=== PATIENT | female | born 1950 | race Caucasian/White ===

== ENCOUNTER 2018-02-03 08:42 | Day surgery (SDC) | payer OTHER, BC ==
--- NOTE | 2018-02-02 12:26 | RAD REPORT ---
EXAM DESCRIPTION: RAD - Chest Pa And Lat (2 Views) - 02/02/2018 12:17 pm CLINICAL HISTORY: Coronary artery disease. Chest pain. COMPARISON: CHEST PA AND LAT 2 VIEW dated 03/03/2012; CHEST SINGLE VIEW dated 05/22/2003 FINDINGS: Diffuse COPD is present. The heart is normal in size. No displaced fractures. Aortic ather osclerosis. IMPRESSION: Diffuse COPD.
[2018-02-02 13:05] LABS: Absolute Lymphocytes (CBC) 1.4 K/uL (0.7-4.9); Absolute Monocytes 0.6 K/uL (0.1-1.3); Absolute Neutrophil 1.9 K/uL (1.8-8.0); Basophils % 0.7 % (0-1.3); Eosinophils % 2.9 % (0-4.4); Hematocrit 34.3 % (36.0-45.0); Lymphocytes % 34.8 % (15.3-44.8); MCH 27.3 pg (27.0-35.0); MCV 85.4 fL (80-100); MPV 9.9 fL (7.6-11.3); Monocytes % 14.7 % (3.3-12.3); RBC Red Blood Cell Count 4.01 M/uL (3.86-4.86)
[2018-02-02 13:21] LABS: Potassium 4.3 mmol/L (3.5-5.1)
[2018-02-03] MEDS ORDERED: NA CHLORIDE 0.9% 500 ML ONE (09:31)
[2018-02-03] MEDS ORDERED: LIDOCAINE 1% MPF 5 ML VIAL ONE (11:05)
[2018-02-03] MEDS ORDERED: HEPA 1000U/500MLS 2,000 UNIT/1,000 ML BAG IV ONE (11:52)
[2018-02-03] MEDS ORDERED: MIDAZOLAM HCL 2 MG/2 ML INJ ONE ×2 (11:53→12:12)
[2018-02-03] MEDS ORDERED: FENTANYL CITR 100 MCG/2 ML ONE (11:53)
[2018-02-03] MEDS ORDERED: HEPARIN 5000 UNIT/ML 1 ML VIAL ONE (12:31)
[2018-02-03 13:29] VITALS: O2SAT 97
[2018-02-03 14:34] VITALS: BP 156/66
[2018-02-03 14:37] VITALS: TEMP 97.4
--- NOTE | 2018-02-03 19:00 | OP ---
Surgeon: Prabhjot Goldsmith MD Production Superintendent: Medina Maria. Admitted to my service as an outpatient on 02/03/2018. The patient was admitted to the clinical laboratory medical director as a n outpatient. Procedure Done: Abdominal angiogram with runoff with selective occlusion of the left superficial fem oral artery. Indication: Peripheral vascular disease and the need for right foot surgery. Description Of Procedure: A 6-Czech sheath was introduced in the right common femoral artery. Star Close was used to close the case. Angiography with a pigtail that was advanced just above the renals revealed normal aorta, normal renals, normal iliacs, normal SFA. She had normal popliteal. She had 100% occlusion of both anterior tibial and peroneal distally. Her posterior tibial was patent bilat erally all the way to the dorsalis pedis. 6-Czech catheters were used. No complications. Blood Loss: 5 cc. Postoperative Diagnosis: Peripheral artery disease. Plan: Medical therapy. We will clear for foot surgery DELILAH/LULU Voice ID: [id number] Report ID: [id number]
== END 2018-02-03 15:01 | disposition home or self-care (01) ==
LOC: CCL 08:42
PROC: B41DYZZ Fluoroscopy of Aorta and Bilateral Lower Extremity Arteries using Other Contrast (ICD-10-PCS; principal; 2018-02-03)
DX: I70.219 Atherosclerosis of native arteries of extremities with intermittent claudication, unspecified extremity (principal); E78.6 Lipoprotein deficiency; I10 Essential (primary) hypertension; I25.10 Atherosclerotic heart disease of native coronary artery without angina pectoris; Z98.61 Coronary angioplasty status; I73.9 Peripheral vascular disease, unspecified
CPT/HCPCS: 36200; 36415; 71046; 75630; 80048; 85025; 85730; C1769; C1887; C1893; J1644; J2250 ×2; J3010

== ENCOUNTER 2018-02-23 15:48 | Inpatient (IN) | payer OTHER, BC ==
[2018-02-23] MEDS ORDERED: MEPERIDINE HCL 25 MG/0.5 ML IV PRN (16:59)
[2018-02-23 17:08] VITALS: BMI 16.6
[2018-02-23] MEDS ORDERED: Pharmacy Consult 1 EA XX PRN (17:13)
[2018-02-23] MEDS ORDERED: VANCOMYCIN 750 MG in NA CHLORIDE 0.9% 150 ML IVPB ONE (17:15)
[2018-02-23 17:45] LABS: Urine Appearance CLEAR; Urine Bilirubin NEGATIVE (NEG); Urine Blood NEGATIVE (NEG); Urine Color YELLOW; Urine Glucose NEGATIVE (NEG); Urine Protein NEGATIVE (NEG); Urine pH 5.5 (5.0-7.0)
[2018-02-23 17:56] LABS: Urine Microscopic Reflex NO UMIC
[2018-02-23 18:06] LABS: Absolute Lymphocytes (CBC) 1.7 K/uL (0.7-4.9); Absolute Monocytes 1.1 K/uL (0.1-1.3); Absolute Neutrophil 4.7 K/uL (1.8-8.0); Basophils % 2.6 % (0-1.3); Eosinophils % 1.5 % (0-4.4); Hematocrit 34.7 % (36.0-45.0); Lymphocytes % 21.5 % (15.3-44.8); MCH 28.4 pg (27.0-35.0); MCV 85.7 fL (80-100); MPV 11.1 fL (7.6-11.3); Monocytes % 14.2 % (3.3-12.3); RBC Red Blood Cell Count 4.05 M/uL (3.86-4.86)
[2018-02-23 19:04] LABS: Albumin 2.6 g/dL (3.4-5.0); Bilirubin Total 0.5 mg/dL (0.2-1.0); Potassium 3.8 mmol/L (3.5-5.1); Protein, Total 7.1 g/dL (6.4-8.2)
--- NOTE | 2018-02-23 21:10 | RAD REPORT ---
EXAM DESCRIPTION: RAD - Foot Left 2 View - 02/23/2018 8:02 pm CLINICAL HISTORY: Foot abscess COMPARISON: None. FINDINGS: No acute fracture change. No dislocation or periosteal reaction. No significant joint spa ce narrowing seen. No bony erosive change identifiable. In the soft tissues medial and inferior to th e first MTP joint there is a 4 centimeter soft tissue mass. Centrally within this mass are coarse Par k and ring type calcifications. Calcifications are relatively distant from the joint space. Calcifica tions could be secondary to a chronic infectious process. Gout is not excluded though the calcificati ons are relatively distant from the joint and the first MTP joint does not show any classic punched-o ut lesion or erosive changes. No air or foreign body in the soft tissues. IMPRESSION: Large 4 centimeter soft tissue mass medial and inferior to the first MTP joint. This is presumed to be the sided infection. No further detail provided regarding site of soft tissue infectio n. Calcifications can 4 minutes a chronic infection. CT would be possible though the calcifications are relatively distant from the joint space and there are no punched-out or erosive changes present.
[2018-02-24] MEDS: PANTOPRAZOLE 40MG TABLET PO SCH (05:42)
[2018-02-24] MEDS: METOPROLOL XL 100 MG TAB PO SCH ×2 (09:00→21:00)
[2018-02-24] MEDS: AMLODIPINE 5 MG TAB PO SCH ×2 (09:00→21:00)
[2018-02-24] MEDS: ASPIRIN EC 81 MG TAB PO SCH (09:00)
[2018-02-24] MEDS ORDERED: Ringers Lactate 1,000 ML IV ONE (10:00)
[2018-02-24] MEDS ORDERED: PROPOFOL 200 MG/20 ML VIAL IV ONE (10:34)
[2018-02-24] MEDS ORDERED: MIDAZOLAM HCL 2 MG/2 ML INJ ONE (10:34)
[2018-02-24] MEDS ORDERED: LIDOCAINE 1% MPF 5 ML VIAL ONE (10:35)
[2018-02-24] MEDS ORDERED: FENTANYL CITR 100 MCG/2 ML ONE (10:35)
[2018-02-24] MEDS ORDERED: ONDANSETRON HCL 40 MG/20 ML VIAL ONE (11:12)
--- NOTE | 2018-02-24 11:18 | P.CNS ---
Date of Consult: 02/23/18 Reason for Consult: cellulitis/abscess left foot History of Present Illness: 67 y/o female with left medial foot tenderness, erythema with on/off purulent discharge. Pt does not recall any trauma. Allergies epinephrine Adverse Reaction (Severe, Verified 02/23/18 20:05) Hives/Rash codeine Adverse Reaction (Verified 02/23/18 20:05) Hives/Rash morphine Adverse Reaction (Verified 02/23/18 20:05) low BP Home Medications: Amlodipine [Norvasc*] 5 mg PO BID 02/23/18 Aspirin [Aspir-Low] 81 mg PO DAILY 02/23/18 Esomeprazole Mag Trihydrate [Nexium] 40 mg PO DAILY 02/23/18 Metoprolol Succinate [Toprol Xl] 100 mg PO BID 02/23/18 - Past Medical/Surgical History Diabetic: No -: Hypertension -: Coronary stent placement -: Cataract surgery ninoska eyes - Social History Smoking Status: Current every day smoker Alcohol use: No CD- Drugs: No Caffeine use: Yes Place of Residence: Home Review of Systems General: Malaise Eyes: Unremarkable ENT: Unremarkable Respiratory: Unremarkable Cardiovascular: Unremarkable Gastrointestinal: Unremarkable Genitourinary: Unremarkable Musculoskeletal: As per HPI Integumentary: As per HPI Physical Examination Temp Pulse Resp BP Pulse Ox 98.1 F 75 17 128/60 96 02/24/18 08:00 02/24/18 08:00 02/24/18 08:00 02/24/18 08:00 02/24/18 08:00 General: Alert, Oriented x3, Cooperative HEENT: PERRLA, EOMI Neck: Supple Respiratory: Normal air movement Cardiovascular: Abnormal pulses Gastrointestinal: Soft and benign, No rebound, No guarding Musculoskeletal: Erythema, Tenderness, Warmth Integumentary: No cyanosis, Erythema (with fluctuancy), Warmth, Other Neurological: Normal speech Laboratory Data (last 24 hrs) 02/23/18 17:45: Sodium 137, Potassium 3.8, BUN 17, Creatinine 0.90, Glucose 97, Total Bilirubin 0.5, AST 35, ALT 45, Alkaline Phosphatase 641 H 02/23/18 17:45: WBC 7.7, Hgb 11.5 L, Hct 34.7 L, Plt Count 290 Imagings Data: arterial doppler seen. Conclusions/Impression: Excisional debridement of left foot ulcer. BAR explained including but not limited to infection, bleeding damage to adjacent structures, non healing wound VT even . Foot xray off loading iv abx NPO P
--- NOTE | 2018-02-24 11:26 | P.BOP ---
Preoperative diagnosis: Left foot cellulitis/ abscess/necrotic ulcer Postoperative diagnosis: same Primary procedure: Incision and drainage of complex left foot abscess 7x4cm with debridement Estimated blood loss: <20cc Specimen: culture, tissue Findings: absess Anesthesia: General Complications: None Drain(s): Other Transferred to: Recovery Room Condition: Good
[2018-02-24] MEDS: MEPERIDINE HCL 50 MG/ML AMP ONE ×2 (11:50→11:55)
[2018-02-24] MEDS ORDERED: VANCOMYCIN 750 MG in NA CHLORIDE 0.9% 150 ML IVPB SCH (17:00)
[2018-02-24] MEDS ORDERED: ENOXAPARIN 30 MG/0.3 ML SQ ONE (17:30)
--- NOTE | 2018-02-25 00:55 | HP ---
Date of Admission: 02/23/2018 Chief Complaint: Pain, foot. History Of Present Illness: A 67-year-old female who is known to have scleroderma and reflux esophag itis and hypertension, was brought to the office with pain of the foot. She was found to have absces s in the foot with surrounding cellulitis. The patient is admitted. The patient denied any history of trauma. Past Medical History: Positive for scleroderma, hypertension. The patient has been having problems with the foot and has been seeing ophthalmic lens inspector. She also had evaluation done by Dr. Goldsmith recently, not needing any angioplasty. Family History: Noncontributory. Personal History: Nonsmoker. Allergies: EPINEPHRINE, CODEINE, AND MORPHINE. Review of Systems: The patient denied any history of chest pain or shortness of breath. Physical Examination: General: Revealed 67-year-old female in cnzzlmrn-[id number]-hnmqjz pain. HEENT: Negative. Neck: Supple. JVD negative. Chest: Few scattered wheezes. Heart: Regular. Abdomen: Soft. Extremities: Evidence of scleroderma noted with tight skin and atrophy of the tips of the toes and f ingers. She also has large abscess of the foot on the medial side with surrounding redness. Laboratory Data: X-ray; no evidence of osteomyelitis. WBC count normal. Assessment: 1.Abscess, cellulitis, left foot. 2.Scleroderma. 3.Hypertension. 4.Acid reflux disease related to scleroderma. Plan: Vancomycin. Surgical consultation is done. SYDNEY/LULU Voice ID: [id number]
[2018-02-25] MEDS: PANTOPRAZOLE 40MG TABLET PO SCH ×2 (06:03→06:05)
[2018-02-25] MEDS: AMLODIPINE 5 MG TAB PO SCH (09:00)
[2018-02-25] MEDS: METOPROLOL XL 100 MG TAB PO SCH (09:00)
[2018-02-25] MEDS: ASPIRIN EC 81 MG TAB PO SCH (09:00)
[2018-02-25 10:41] VITALS: TEMP 98.2
[2018-02-25 11:47] VITALS: O2SAT 99
[2018-02-25 16:44] VITALS: BP 161/70
--- NOTE | 2018-02-25 20:37 | OP ---
Date of Procedure: 02/24/2018 Surgeon: Dennys Brown MD Preoperative Diagnoses: Left foot cellulitis abscess, necrotic ulcer. Postoperative Diagnoses: Left foot cellulitis abscess, necrotic ulcer. Procedures: Incision and drainage of complex left foot abscess, 7 x 4 cm with debridement of the dev italized tissue. Specimen: Culture and devitalized tissue. Finding: Abscess. Indications: This is a case of a 67-year-old patient, who comes to us with cellulitis of the left fo ot region. Started on IV antibiotics. Very tender. The patient started on antibiotics and a surgic al consult obtained for drainage of an abscess. The benefits, alternatives, and risks have been full y explained, which include but are not limited to infection, bleeding, damage to adjacent structures, anesthesia complication, nonhealing wound, MS, and even . They also understands this may not r elieve any symptoms. She might need more than one surgical intervention. They understood. Signed a consent. Procedure In Detail: The area of concern was marked by me and the patient in the holding room. A ti me-out was called. The left foot was prepped and draped in sterile fashion. Local anesthesia was ap plied for allowing the incision of the devitalized tissue. This goes all the way down to bone. We n oticed not only pus, but also this tophi-like tissue in that area. Cannot rule out gout if it is inv olved in this case. So, we will discuss that with the primary doctor. Anyway the abscess was draine d. Loculations opened. Devitalized tissue was removed, sent to the pathologist and the area was pac ked wet-to-dry dressing after obtaining hemostasis. The patient tolerated the procedure well. The patient was sent to Recovery in stable condition. PATT/MODL Voice ID: [id number] Report ID: [id number]
--- NOTE | 2018-03-06 14:47 | DS ---
Date of Discharge: 02/25/2018 Final Diagnoses: 1.Cellulitis and abscess, left foot. 2.Scleroderma. 3.Hypertension. 4.Acid reflux disease related to scleroderma. Hospital Course: This patient had evidence of cellulitis and abscess formation of the left foot. Th e patient after admission to the hospital was started on antibiotic in the form of vancomycin, and th e patient had surgical consultation. The patient subsequently underwent incision and drainage and de bridement. The patient received IV antibiotic following the procedure, and she was discharged home o n oral antibiotics on 02/23/2019 and to have follow up in the office. Laboratory Data: Please refer to the chart. SYDNEY/LULU Voice ID: [id number] Report ID: [id number]
== END 2018-02-25 14:49 | disposition home health service (06) | DRG 580 ==
LOC: 2ND 16:11
PROVIDERS: ADMIT Internal Medicine; ATTEND Internal Medicine
PROC: 0J9R0ZZ Drainage of Left Foot Subcutaneous Tissue and Fascia, Open Approach (ICD-10-PCS; principal; 2018-02-24 10:15)
DX: L02.612 Cutaneous abscess of left foot (principal); L03.116 Cellulitis of left lower limb; I10 Essential (primary) hypertension; F17.200 Nicotine dependence, unspecified, uncomplicated; M34.9 Systemic sclerosis, unspecified; K21.9 Gastro-esophageal reflux disease without esophagitis; Z95.5 Presence of coronary angioplasty implant and graft; Z88.5 Allergy status to narcotic agent; Z88.8 Allergy status to other drugs, medicaments and biological substances; Z79.82 Long term (current) use of aspirin
CPT/HCPCS: 36415; 80053; 81003; 83540; 85025; 87070; 87075; 87077; 87186; 87205; 88304; 88311; J1650; J2175; J2250; J2405; J3010

== ENCOUNTER 2018-04-27 10:55 | Observation (INO) | payer OTHER, BC ==
[2018-04-27 12:03] LABS: Urine Appearance CLEAR; Urine Bilirubin NEGATIVE (NEG); Urine Blood NEGATIVE (NEG); Urine Color YELLOW; Urine Glucose NEGATIVE (NEG); Urine Protein NEGATIVE (NEG); Urine Specific Gravity <=1.005 (1.005-1.030)
[2018-04-27 12:19] LABS: Absolute Lymphocytes (CBC) 1.5 K/uL (0.7-4.9); Absolute Monocytes 0.6 K/uL (0.1-1.3); Absolute Neutrophil 2.8 K/uL (1.8-8.0); Eosinophils % 2.1 % (0-4.4); Hematocrit 26.9 % (36.0-45.0); Lymphocytes % 28.5 % (15.3-44.8); MCH 21.8 pg (27.0-35.0); MCV 72.5 fL (80-100); MPV 10.1 fL (7.6-11.3); Monocytes % 11.9 % (3.3-12.3); RBC Red Blood Cell Count 3.71 M/uL (3.86-4.86)
[2018-04-27 12:26] LABS: Urine Microscopic Reflex NO UMIC
[2018-04-27 12:39] LABS: Albumin 2.2 g/dL (3.4-5.0); Bilirubin Total 0.5 mg/dL (0.2-1.0); Potassium 3.4 mmol/L (3.5-5.1); Protein, Total 5.8 g/dL (6.4-8.2)
[2018-04-27 13:06] LABS: Anisocytosis 2+; Blood Morphology Comment NOTED (NOT SEEN); Platelet Estimate INCR; Urine White Blood Cell Casts OK
[2018-04-27 13:07] LABS: Hypochromasia 2+; Macrocytosis SLIGHT; Polychromasia SLIGHT
[2018-04-27] MEDS: NACHLORIDE 0.45% 1,000 ML IV SCH ×2 (13:11→21:28)
--- NOTE | 2018-04-27 14:26 | RAD REPORT ---
EXAM DESCRIPTION: CTAbdomen Pelvis W Contrast - 04/27/2018 2:16 pm CLINICAL HISTORY: Abdominal pain. abd pain COMPARISON: No comparisons TECHNIQUE: Biphasic CT imaging of the abdomen and pelvis was performed with 100 ml non-ionic IV cont rast. All CT scans are performed using dose optimization technique as appropriate and may include automated exposure control or mA/KV adjustment according to patient size. FINDINGS: Subsegmental atelectasis is present in both lung bases with small moderate bilateral pleur al effusions. The liver, spleen, pancreas, adrenal glands and kidneys are within normal limits. Moderate ascites. Large amount of stool is present in the colon. A relatively abrupt caliber change i s present in the rectum. Proximal to this point large amount of retained stool is seen. No perforatio n is present. The appendix is not identified as a discrete structure, however, no secondary findings of appendicitis are identified. No evidence of significant lymphadenopathy. Aortic atherosclerosis. No suspicious bony findings. Large injection granulomas seen in the gluteal region. IMPRESSION: Relatively abrupt change in caliber of the rectum is seen which could indicate the prese nce of a mass. There is significant retention of stool proximal to this point. Colonoscopy followup i s recommended. Moderate ascites and small moderate bilateral pleural effusions.
[2018-04-27] MEDS: FLEET ENEMA ADULT PR SCH (21:21)
[2018-04-28] MEDS: NACHLORIDE 0.45% 1,000 ML IV SCH ×2 (05:41→13:00)
[2018-04-28] MEDS ORDERED: GLYCERIN ADULT SUPP PR SCH (09:00)
[2018-04-28] MEDS: FLEET ENEMA ADULT PR SCH ×2 (11:10→21:00)
--- NOTE | 2018-04-28 13:50 | RAD REPORT ---
EXAM DESCRIPTION: RAD - Abdomen 1 View (KUB) - 04/28/2018 1:41 pm CLINICAL HISTORY: Abdomen pain. FINDINGS: The bowel gas pattern is unremarkable. Large amount of stool is present within the sigmoid, ascending and transverse colon.
[2018-04-28 14:39] VITALS: BMI 19.4
[2018-04-28] MEDS ORDERED: GOLYTELY 4000 ML PO SCH (16:00)
[2018-04-28] MEDS: AMLODIPINE 5 MG TAB PO SCH (21:00)
[2018-04-28] MEDS: METOPROLOL XL 100 MG TAB PO SCH (21:00)
--- NOTE | 2018-04-28 23:18 | HP ---
Date of Admission: 04/27/2018 Chief Complaint: Abdominal pain, constipation. History Of Present Illness: A 67-year-old female was brought to my office on Friday for abdominal pa in and constipation; however, she refused to get admitted for rule out bowel obstruction. The patien t returned on Friday because of continued symptoms. At this point, the patient was admitted for obse rvation. There was no history of vomiting, no history of fever and chills; however, she tried enemas without any success. CAT scan at admission showed evidence of possible mass in the rectum. Past Medical History: Positive for scleroderma, Raynaud's disease, iron deficiency anemia, gastroeso phageal reflux, and hypertension. Past Surgical History: Positive for coronary angioplasty, cataract surgery, and foot surgery. Allergies: EPINEPHRINE, CODEINE, AND MORPHINE. Review of Systems: The patient denies any fever, chills, or rigors. Physical Examination: General: Revealed a 67-year-old female, thin built. Vital Signs: Afebrile. HEENT: Otherwise negative. Neck: Supple. JVD negative. Chest: Scattered wheezes. Heart: Regular. Abdomen: Diffusely tender, particularly left umbilical area. Bowel sounds present. Extremities: No edema. Laboratory Data: White count, normal. CAT scan, possible mass in the rectum with large amount of st ools. Assessment: 1.Abdominal pain. 2.Possible rectal mass. 3.Severe constipation. 4.Scleroderma. 5.Known coronary artery disease and angioplasty. 6.Raynaud's disease. 7.Chronic iron deficiency anemia. 8.History of hypertension. 9.Gastroesophageal reflux disease. Plan: The patient is seen by Gastroenterology Service. They recommended digital disimpaction and en emas and the patient very likely will need endoscopy. This was explained to the family. SYDNEY/LULU Voice ID: [id number]
[2018-04-29 01:22] VITALS: O2SAT 94
[2018-04-29] MEDS: NACHLORIDE 0.45% 1,000 ML IV SCH ×3 (02:19→13:00)
[2018-04-29] MEDS ORDERED: PANTOPRAZOLE 40MG TABLET PO SCH (08:00)
[2018-04-29] MEDS: FLEET ENEMA ADULT PR SCH (08:40)
[2018-04-29] MEDS: AMLODIPINE 5 MG TAB PO SCH (08:42)
[2018-04-29] MEDS: METOPROLOL XL 100 MG TAB PO SCH (08:42)
[2018-04-29] MEDS ORDERED: GOLYTELY 4000 ML PO SCH (09:00)
[2018-04-29] MEDS ORDERED: ASPIRIN 81 MG CHEWABLE TABLET PO SCH (09:00)
--- NOTE | 2018-04-29 09:57 | RAD REPORT ---
EXAM DESCRIPTION: RAD - Abdomen 1 View (KUB) - 04/29/2018 9:35 am CLINICAL HISTORY: eval stool in rectum Pain COMPARISON: Abdomen 1 View (KUB) dated 04/28/2018; Abdomen Pelvis W Contrast dated 04/27/2018 FINDINGS: The bowel gas pattern is non-obstructive. No evidence of free air or pneumatosis. No suspi cious calcifications. No significant bony findings. Bilateral injection granulomas are present. Mild fecal retention noted. IMPRESSION: Mild fecal retention is seen in the colon.
--- NOTE | 2018-04-29 18:04 | PN ---
Date of Progress Note: 04/28/2018 Reason For Service: Merging of wound, medial aspect of the foot. History Of Present Illness: This is a 67-year-old patient who comes to us with multiple medical prob lems including constipation. At the same time, the patient comes with a chronic wound that we believe is related to gout, eventually infection developed, and she received debridement of the foot medial side and [facility]. It has been looking good for the last few weeks. Past Surgical History: Cataract surgery, foot surgery, and debridement. Allergies: EPINEPHRINE, CODEINE, MORPHINE. Family History: Unremarkable. Social History: She does not smoke. She does not drink alcohol. Review of Systems: Ten points otherwise unremarkable. Physical Examination: General: The patient is awake and alert. HEENT: Pupils equal and reactive, anicteric. Neck: Supple. Chest: Clear. Heart: S1, S2. Abdomen: Soft, distended. No guarding or rebound. The patient states she has been having some cons tipation. Rectal, Breast, Pelvic: Deferred. Extremities: Over the foot area, the patient has an open wound medially and the foot distally at the base of first metatarsal region. The wound is improving and has excellent granulation tissue. Actu ally, it is about 80% epithelialized right now. No bone tendon exposed. Dorsalis pedis pulses still present. Laboratory Data: Blood work shows hemoglobin 8.1, platelets of 294, and creatinine is 0.9. Assessment: A 67-year-old patient with a nonhealing wound over the medial side of the foot. We are going to continue with the same dressings we were using in the [facility]. We would reques t [facility] the treatment that we gave her in that area, we gave it to the first front ventilator, and we are going to continue with the same treatment, please see orders. The patient understands when s he gets discharged to [facility] in about 2 weeks from now. PATT/LULU Voice ID: [id number] Report ID: [id number]
[2018-04-29] MEDS ORDERED: ENOXAPARIN 30 MG/0.3 ML SQ ONE (18:24)
[2018-04-29 20:27] VITALS: BP 142/66; TEMP 98.6
--- NOTE | 2018-04-29 23:42 | PN ---
The patient is having results from the [facility]. Her abdomen is softer. She still has inflamed hemo rrhoids; however, they are not actively bleeding. The patient is started on Lovenox. SYDNEY/LULU Voice ID: [id number] Report ID: [id number]
== END 2018-04-29 20:20 | disposition home or self-care (01) ==
LOC: 2ND 11:10
PROVIDERS: ADMIT Internal Medicine; ATTEND Internal Medicine
DX: K59.00 Constipation, unspecified (principal); M34.9 Systemic sclerosis, unspecified; K64.9 Unspecified hemorrhoids; I25.10 Atherosclerotic heart disease of native coronary artery without angina pectoris; Z98.61 Coronary angioplasty status; I73.00 Raynaud's syndrome without gangrene; D50.9 Iron deficiency anemia, unspecified; K21.9 Gastro-esophageal reflux disease without esophagitis; S91.309A Unspecified open wound, unspecified foot, initial encounter
CPT/HCPCS: 36415; 74018 ×2; 74177; 80053; 81003; 85025; G0378 ×2; J1650; Q9967

== ENCOUNTER 2018-05-08 10:43 | Observation (INO) | payer OTHER, BC ==
[2018-05-08 12:20] LABS: Urine Appearance CLEAR; Urine Bilirubin NEGATIVE (NEG); Urine Blood NEGATIVE (NEG); Urine Color YELLOW; Urine Glucose NEGATIVE (NEG); Urine Protein NEGATIVE (NEG); Urine Specific Gravity <=1.005 (1.005-1.030); Urine Urobilinogen 0.2 mg/dL (0.2-1.0); Urine pH 5.5 (5.0-7.0)
[2018-05-08 12:36] LABS: Urine Microscopic Reflex NO UMIC
[2018-05-08 12:41] VITALS: O2SAT 100; BMI 20.2
[2018-05-08] MEDS ORDERED: NA CHLORIDE 0.9% 250 ML ONE (17:57)
[2018-05-08] MEDS: METOPROLOL XL 100 MG TAB PO SCH (21:00)
--- NOTE | 2018-05-09 02:56 | HP ---
Date of Admission: 05/08/2018 Chief Complaint: Anemia. History Of Present Illness: A 67-year-old female who was seen in the office as an outpatient and she was found to have hemoglobin of 7.7. The patient is scheduled for colonoscopy as an outpatient in [facility] of anemia as well as needed colonoscopy. The patient is admitted for observation for 2 units of packed RBCs. The patient denies any history of vomiting of blood. The patient recently had severe c onstipation, needing multiple enemas and digital cleaning. The patient currently does not have obi blood in the stools, even though she had during the last admission. Past Medical History: Positive for scleroderma with Raynaud phenomena. She has acid reflux disease and hypertension. Family History: Noncontributory. Personal History: Nonsmoker. Allergies: EPINEPHRINE, CODEINE, MORPHINE. Review of Systems: No fever, chills, rigors. Physical Examination: General: A 67-year-old female, pale looking. HEENT: Otherwise negative other than the circum-oral scarring from scleroderma. Neck: Supple. JVD negative. Chest: Scattered wheezes. Heart: Regular. Abdomen: Mild diffuse tenderness. No mass. Extremities: Mild pedal edema. There is old scarring from her Raynaud phenomena. Assessment: 1.Anemia. 2.Rule out colonic obstruction. 3.Scleroderma with Raynaud phenomena. 4.Gastroesophageal reflux disease. 5.Hypertension. Plan: Packed units, two ordered already, after which she will be discharged. She is due to have col onoscopy as an outpatient. SYDNEY/LULU Voice ID: [id number]
[2018-05-09] MEDS ORDERED: PANTOPRAZOLE 40MG TABLET PO SCH (06:30)
[2018-05-09 06:39] LABS: Hematocrit 34.5 % (36.0-45.0)
[2018-05-09] MEDS ORDERED: HOME MED 1 EA UNK (Esomeprazole Mag Trihydrate [Nexium] 40 MG) PO SCH (08:00)
[2018-05-09] MEDS: METOPROLOL XL 100 MG TAB PO SCH (09:00)
[2018-05-09] MEDS ORDERED: ASPIRIN 81 MG CHEWABLE TABLET PO SCH (09:00)
[2018-05-09] MEDS ORDERED: FUROSEMIDE 40 MG TABLET PO SCH (09:00)
[2018-05-09 11:11] VITALS: BP 157/63; TEMP 99.1
== END 2018-05-09 10:50 | disposition home health service (06) ==
LOC: 2ND 10:53
PROVIDERS: ADMIT Internal Medicine; ATTEND Internal Medicine
PROC: 30233N1 Transfusion of Nonautologous Red Blood Cells into Peripheral Vein, Percutaneous Approach (ICD-10-PCS; principal; 2018-05-08)
DX: D64.9 Anemia, unspecified (principal); M34.9 Systemic sclerosis, unspecified; I73.00 Raynaud's syndrome without gangrene; K21.9 Gastro-esophageal reflux disease without esophagitis; I10 Essential (primary) hypertension
CPT/HCPCS: 36415; 36430 ×3; 81003; 85014; 85018; 86850; 86900; 86901; P9016 ×2

== ENCOUNTER 2018-05-21 20:19 | Inpatient (IN) | payer OTHER, BC ==
[2018-05-21] MEDS ORDERED: Levofloxacin500mg IV 500 MG/100 ML BAG IV ONE (20:59)
[2018-05-21] MEDS ORDERED: ALBUTEROL 2.5 MG/3 ML NEB SOL NEB PRN (21:16)
[2018-05-21 21:31] VITALS: BMI 16.5
[2018-05-21] MEDS ORDERED: SODIUM CHLORIDE 0.9% 10ML INJ IV PRN (21:42)
[2018-05-21 22:09] LABS: Bilirubin Total 0.5 mg/dL (0.2-1.0); Potassium 3.7 mmol/L (3.5-5.1); Protein, Total 5.7 g/dL (6.4-8.2)
[2018-05-21 22:35] LABS: Absolute Lymphocytes (CBC) 1.4 K/uL (0.7-4.9); Absolute Monocytes 0.8 K/uL (0.1-1.3); Absolute Neutrophil 6.9 K/uL (1.8-8.0); Basophils % 1.5 % (0-1.3); Eosinophils % 0.4 % (0-4.4); Hematocrit 31.8 % (36.0-45.0); Lymphocytes % 14.8 % (15.3-44.8); MCH 22.3 pg (27.0-35.0); MCV 69.7 fL (80-100); Monocytes % 8.4 % (3.3-12.3); RBC Red Blood Cell Count 4.57 M/uL (3.86-4.86)
[2018-05-21 23:04] LABS: Urine White Blood Cell Casts OK
[2018-05-21 23:05] LABS: Blood Morphology Comment NOTED (NOT SEEN)
[2018-05-21 23:06] LABS: Anisocytosis 3+
[2018-05-21 23:07] LABS: Hypochromasia 1+; Platelet Estimate ADEQ
[2018-05-22] MEDS ORDERED: ALBUTEROL 2.5 MG/3 ML NEB SOL NEB SCH (02:00)
[2018-05-22] MEDS: SODIUM CHLORIDE 0.9% 10ML INJ IV SCH ×2 (10:59→21:25)
[2018-05-22] MEDS ORDERED: HOME MED 1 EA UNK TOP SCH ×2 (11:30→13:00)
[2018-05-22] MEDS ORDERED: APPL TOP SCH (16:30)
[2018-05-22] MEDS: METOPROLOL TAR 50 MG TAB PO SCH (21:00)
[2018-05-22] MEDS: MAGNESIUM OXIDE 400 MG TAB PO SCH (21:22)
[2018-05-22] MEDS: predniSONE 20 MG TAB PO SCH (21:22)
[2018-05-22] MEDS: Levofloxacin 250mg IV 250 MG/50 ML BAG IV SCH (21:22)
[2018-05-22] MEDS: PROMOD 30 ML DOSE PO SCH (21:25)
--- NOTE | 2018-05-22 23:32 | HP ---
Date of Admission: 05/21/2018 Chief Complaint: Wheezing, coughing. History Of Present Illness: A 67-year-old female was brought to the office with wheezing and coughin g. Clinically, she was found to have evidence of pneumonia with COPD exacerbation. Chest x-ray done as an outpatient showed right side pneumonia. The patient is admitted for IV antibiotic therapy, br eathing treatments, and monitored. The patient denied any history of hemoptysis. Past Medical History: Positive for COPD. She has history of scleroderma, gastroesophageal reflux di sease, hypertension. Family History: Noncontributory. Personal History: She is allergic to codeine, morphine, and epinephrine. Review of Systems: The patient denied any history of chest pain. Home Medicines: Please refer to the chart. Physical Examination: General: Revealed 67-year-old female with audible wheezing, temperature normal. HEENT: Evidence of scleroderma with tethering of the skin around mouth. Neck: No JVD. Chest: Bilateral wheezes, crackles right lung. Heart: Regular. Abdomen: Soft. Extremities: Evidence of recent surgery of the foot. Otherwise, negative. Laboratory: White count normal. Chem profile; BUN 31, creatinine 1.8, alkaline phosphatase 229. Chest x-ray, right-sided pneumonia, COPD. Assessment: 1.Chronic obstructive pulmonary disease exacerbation. 2.Right-sided pneumonia. 3.Scleroderma. 4.Hypertension. Plan: IV Levaquin, breathing treatments, steroids, O2. RRK/MODL Voice ID: [id number]
[2018-05-23] MEDS ORDERED: PANTOPRAZOLE 40MG TABLET PO SCH ×3 (06:30)
[2018-05-23] MEDS: PROMOD 30 ML DOSE PO SCH ×2 (08:41→20:53)
[2018-05-23] MEDS: FUROSEMIDE 40 MG TABLET PO SCH (08:42)
[2018-05-23] MEDS: ENSURE HIGH PROTEIN 237 ML CAN PO SCH (08:42)
[2018-05-23] MEDS: predniSONE 20 MG TAB PO SCH ×2 (08:43→20:54)
[2018-05-23] MEDS: METOPROLOL TAR 50 MG TAB PO SCH ×2 (08:43→20:54)
[2018-05-23] MEDS: ASPIRIN 81 MG CHEWABLE TABLET PO SCH (08:44)
[2018-05-23] MEDS: POTASSIUM CHLORIDE 20 MEQ PACKET PO SCH (08:44)
[2018-05-23] MEDS: MAGNESIUM OXIDE 400 MG TAB PO SCH (08:45)
[2018-05-23] MEDS: SODIUM CHLORIDE 0.9% 10ML INJ IV SCH ×2 (08:46→20:54)
[2018-05-23] MEDS ORDERED: ASPIRIN 81 MG CHEWABLE TABLET PO SCH ×2 (09:00)
[2018-05-23] MEDS ORDERED: HOME MED 1 EA UNK PO SCH (09:00)
[2018-05-23] MEDS ORDERED: POTASSIUM CHLORIDE 20 MEQ PO SCH (09:00)
[2018-05-23] MEDS ORDERED: MAGNESIUM OXIDE PO SCH (09:00)
[2018-05-23] MEDS ORDERED: POTASSIUM CL SA 10 MEQ TAB PO SCH (09:00)
[2018-05-23] MEDS ORDERED: HOME MED 1 EA UNK TOP SCH (09:00)
[2018-05-23] MEDS ORDERED: FUROSEMIDE 40 MG TABLET PO SCH (09:00)
[2018-05-23] MEDS ORDERED: HOME MED 1 EA UNK (Esomeprazole Mag Trihydrate [Nexium] 40 MG) PO SCH (09:00)
[2018-05-23] MEDS ORDERED: MAGNESIUM OXIDE 400 MG TAB PO SCH (09:00)
--- NOTE | 2018-05-23 12:55 | PN ---
The patient is afebrile. She still has considerable amount of wheezing. The patient's respiratory r ate is lower today. The patient will have a chest x-ray done tomorrow after which addition will be d one whether she can be switched to oral antibiotics. SYDNEY/LULU Voice ID: [id number] Report ID: [id number]
[2018-05-23] MEDS: Levofloxacin 250mg IV 250 MG/50 ML BAG IV SCH (20:53)
[2018-05-24] MEDS: PANTOPRAZOLE 40MG TABLET PO SCH (07:30)
[2018-05-24] MEDS: SODIUM CHLORIDE 0.9% 10ML INJ IV SCH ×2 (09:00→21:14)
[2018-05-24] MEDS: FUROSEMIDE 40 MG TABLET PO SCH (10:22)
[2018-05-24] MEDS: predniSONE 20 MG TAB PO SCH ×2 (10:22→21:12)
[2018-05-24] MEDS: METOPROLOL TAR 50 MG TAB PO SCH ×2 (10:22→21:13)
[2018-05-24] MEDS: MAGNESIUM OXIDE 400 MG TAB PO SCH ×2 (10:23→21:15)
[2018-05-24] MEDS: POTASSIUM CHLORIDE 20 MEQ PACKET PO SCH (10:23)
[2018-05-24] MEDS: ENSURE HIGH PROTEIN 237 ML CAN PO SCH (10:24)
[2018-05-24] MEDS: PROMOD 30 ML DOSE PO SCH ×2 (10:24→21:11)
[2018-05-24] MEDS: ASPIRIN 81 MG CHEWABLE TABLET PO SCH (10:24)
--- NOTE | 2018-05-24 11:14 | RAD REPORT ---
EXAM DESCRIPTION: RAD - Chest Pa And Lat (2 Views) - 05/24/2018 9:29 am CLINICAL HISTORY: Pneumonia COMPARISON: May 21 TECHNIQUE: PA and lateral views of the chest were obtained. FINDINGS: The lungs are mildly fibrotic as a baseline. Right base infiltrative changes are not clear ly different. Right costophrenic angle blunting is still present. Heart size is normal and central vasculature is within normal limits. No pneumothorax or enlarging pleural fluid collection. No acute bony finding noted. No aortic abnormality. IMPRESSION: Right base parenchymal opacification and small pleural effusions stable from prior study .
[2018-05-24] MEDS ORDERED: ENOXAPARIN 30 MG/0.3 ML SQ ONE (13:54)
[2018-05-24] MEDS: Levofloxacin 250mg IV 250 MG/50 ML BAG IV SCH (21:12)
--- NOTE | 2018-05-24 22:39 | PN ---
The patient is doing better. Her x-ray still shows the infiltrate. However, she is afebrile. Her O 2 saturation had been checked to see whether she has any need for home oxygen. Her O2 saturations lo ok okay. The patient will be continued on IV antibiotic for another 24 hours, and she will be discha rged on oral antibiotic and followed up in the office. It is possible that the patient may even need CAT scan if the infiltrate does not disappear as she is a smoker. Already counseled her for smoking related issues such as COPD and respiratory infections. SYDNEY/LULU Voice ID: [id number] Report ID: [id number]
[2018-05-25 04:32] VITALS: O2SAT 92
[2018-05-25] MEDS: PANTOPRAZOLE 40MG TABLET PO SCH (07:56)
[2018-05-25 09:10] VITALS: BP 101/46; TEMP 98.5
[2018-05-25] MEDS: predniSONE 20 MG TAB PO SCH (09:46)
[2018-05-25] MEDS: SODIUM CHLORIDE 0.9% 10ML INJ IV SCH (09:47)
[2018-05-25] MEDS: FUROSEMIDE 40 MG TABLET PO SCH (09:47)
[2018-05-25] MEDS: METOPROLOL TAR 50 MG TAB PO SCH (09:48)
[2018-05-25] MEDS: POTASSIUM CHLORIDE 20 MEQ PACKET PO SCH (09:49)
[2018-05-25] MEDS: ASPIRIN 81 MG CHEWABLE TABLET PO SCH (09:49)
[2018-05-25] MEDS: MAGNESIUM OXIDE 400 MG TAB PO SCH (09:49)
[2018-05-25] MEDS: PROMOD 30 ML DOSE PO SCH (10:00)
[2018-05-25] MEDS: ENSURE HIGH PROTEIN 237 ML CAN PO SCH (10:02)
== END 2018-05-25 10:41 | disposition home or self-care (01) | DRG 190 ==
LOC: 4TH 20:19
PROVIDERS: ADMIT Internal Medicine; ATTEND Internal Medicine
DX: J44.0 Chronic obstructive pulmonary disease with (acute) lower respiratory infection (principal); J18.9 Pneumonia, unspecified organism; J44.1 Chronic obstructive pulmonary disease with (acute) exacerbation; F17.210 Nicotine dependence, cigarettes, uncomplicated; M34.9 Systemic sclerosis, unspecified; K21.9 Gastro-esophageal reflux disease without esophagitis; I10 Essential (primary) hypertension; Z88.5 Allergy status to narcotic agent
CPT/HCPCS: 36415; 71046; 80053; 85025; 87040; 99213; A6010; J1650; J7512

== ENCOUNTER 2018-07-27 10:07 | Day surgery (SDC) | payer OTHER, BC ==
[2018-07-27] MEDS ORDERED: ALBUMIN HUMAN 25% 100 ML IV SCH (10:15)
[2018-07-27 11:19] VITALS: BMI 16.9
--- NOTE | 2018-07-27 13:00 | RAD REPORT ---
EXAM DESCRIPTION: US - Paracentesis Proc Guidance - 07/27/2018 12:54 pm CLINICAL HISTORY: Liver disease with ascites FINDINGS: The risks, benefits and alternatives to the procedure were explained to the patient and in formed consent obtained. The skin and subcutaneous tissues were anesthetized with Lidocaine. Under sonographic guidance an 8 F rench catheter was placed into the right lower quadrant. 5.2 liters of yellow fluid removed. Some of the fluid was sent to the lab. The patient experienced no immediate complication. IMPRESSION: Paracentesis
[2018-07-27 14:44] VITALS: TEMP 98.8; O2SAT 100
[2018-07-27 14:46] VITALS: BP 106/42
[2018-07-27 14:55] LABS: Body Fluid Source PERITONEAL; Color of fluid Colorless (COLORLESS)
[2018-07-27 14:56] LABS: Appearance CLEAR (CLEAR); Body Fluid WBC 58 /mm^3
[2018-07-30 15:36] LABS: Alpha Fetoprotein-Tumor Marker 1.6 ng/mL (<6.1)
== END 2018-07-27 15:34 | disposition home or self-care (01) ==
LOC: DS 10:07
PROVIDERS: ATTEND Internal Medicine Gastroenterology
DX: R18.8 Other ascites (principal); D62 Acute posthemorrhagic anemia; R53.82 Chronic fatigue, unspecified; R63.4 Abnormal weight loss; R93.5 Abnormal findings on diagnostic imaging of other abdominal regions, including retroperitoneum; F17.200 Nicotine dependence, unspecified, uncomplicated
CPT/HCPCS: 36415 ×2; 49083; 80053; 82105; 82607; 82728; 82746; 83540; 84443; 84466 ×2; 85025; 85610; 85730; 86038; 86850; 86900; 86901; 87070; 89050; 96365; P9047; 36430; 85014; 85018; P9016

== ENCOUNTER 2018-07-28 07:22 | Day surgery (SDC) | payer OTHER, BC ==
[2018-07-27 11:08] LABS: Absolute Lymphocytes (CBC) 1.1 K/uL (0.7-4.9); Absolute Monocytes 0.5 K/uL (0.1-1.3); Absolute Neutrophil 2.4 K/uL (1.8-8.0); Basophils % 0.7 % (0-1.3); Eosinophils % 1.5 % (0-4.4); Hematocrit 26.1 % (36.0-45.0); Lymphocytes % 27.5 % (15.3-44.8); MPV 9.7 fL (7.6-11.3); Monocytes % 11.6 % (3.3-12.3); RBC Red Blood Cell Count 4.06 M/uL (3.86-4.86)
[2018-07-27 11:09] LABS: Protime INR 1.02
[2018-07-27 11:42] LABS: Albumin 1.8 g/dL (3.4-5.0); Bilirubin Total 0.4 mg/dL (0.2-1.0); Ferritin 18.6 ng/mL (8-388); Potassium 4.1 mmol/L (3.5-5.1); Protein, Total 5.5 g/dL (6.4-8.2); Thyroid Stimulating Hormone 2.99 uIU/mL (0.360-3.740)
[2018-07-27 12:28] LABS: Anisocytosis 1+; Blood Morphology Comment NOTED (NOT SEEN); Hypochromasia 2+; Platelet Estimate ADEQ
[2018-07-28] MEDS ORDERED: NA CHLORIDE 0.9% 500 ML ONE ×2 (08:09→10:42)
[2018-07-28 14:06] LABS: Hematocrit 30.9 % (36.0-45.0)
[2018-07-28 14:26] VITALS: BP 114/51; TEMP 98.2; O2SAT 100
[2018-07-28 14:28] VITALS: BMI 16.9
== END 2018-07-28 13:50 | disposition home or self-care (01) ==
LOC: DS 07:22
PROVIDERS: ATTEND Internal Medicine Gastroenterology
DX: D62 Acute posthemorrhagic anemia (principal)
CPT/HCPCS: 36415 ×2; 36430; 80053; 82607; 82728; 82746; 83540; 84443; 84466 ×2; 85014; 85018; 85025; 85610; 85730; 86850; 86900; 86901; P9016 ×2

== ENCOUNTER 2018-08-14 09:50 | Day surgery (SDC) | payer OTHER, BC ==
[2018-08-14 10:26] VITALS: O2SAT 100
[2018-08-14 10:32] VITALS: BMI 18.1
--- NOTE | 2018-08-14 12:51 | RAD REPORT ---
EXAM DESCRIPTION: US - Paracentesis Proc Guidance - 08/14/2018 12:21 pm CLINICAL HISTORY: Ascites COMPARISON: Paracentesis July 27 TECHNIQUE: The patient presents for ultrasound-guided paracentesis. The procedure, risks and altern atives were discussed with the patient in detail. Oral and written consent were obtained. Time out p rocedure was performed. The patient had no contraindicated allergy or medication history. PT, INR va lues within acceptable limits. Preliminary sonographic evaluation identified left lower quadrant access site. The skin and deeper t issues were anesthetized with 1 percent lidocaine. Under direct sonographic visualization, a paracen tesis catheter was advanced into the peritoneal cavity. Large volume drainage was initiated. Approxi mately 5.5 liters of ascites removed. 15 cc of ascites retained for requested laboratory studies. At the conclusion of the procedure, catheter was withdrawn and a bandage placed at the puncture site. Postprocedure care and precaution instructions were given to the patient. Patient was transferred b day [facility] to same-day surgery for post paracentesis monitoring. IMPRESSION: Ultrasound-guided paracentesis as detailed.
[2018-08-14] MEDS ORDERED: ALBUMIN HUMAN 25% 100 ML IV SCH (13:00)
[2018-08-14 13:46] VITALS: BP 148/54; TEMP 98.4
[2018-08-14 15:37] LABS: Body Fluid Source PERITONEAL
[2018-08-14 15:39] LABS: Appearance CLEAR (CLEAR); Body Fluid WBC 68 /mm^3; Color of fluid Yellow (COLORLESS)
== END 2018-08-14 14:01 | disposition home or self-care (01) ==
LOC: DS 09:50
PROVIDERS: ATTEND Internal Medicine Gastroenterology
DX: R18.8 Other ascites (principal); R94.5 Abnormal results of liver function studies
CPT/HCPCS: 36415; 49083; 87070; 88108; 88305; 89050; 96365; P9047

== ENCOUNTER 2018-08-25 06:26 | Day surgery (SDC) | payer OTHER, BC ==
[2018-08-25] MEDS ORDERED: Ringers Lactate 1,000 ML IV ONE (06:57)
[2018-08-25] MEDS ORDERED: LIDOCAINE 1% MPF 5 ML VIAL ONE (08:35)
[2018-08-25] MEDS ORDERED: PROPOFOL 200 MG/20 ML VIAL IV ONE (08:35)
--- NOTE | 2018-08-25 09:05 | ENDO RPT ---
[address], [address] EGD WITH DILATION PROCEDURE REPORT EXAM DATE: 08/25/2018 PATIENT NAME: Natalie Allison MR#: [id number] BIRTHDATE: 1950 ATTENDING: Anmol Lugo Dr STATUS: outpatient CINDER WORKER: Anette Nava RN and Madelaine Krishnamurthy RN INDICATIONS: The patient is a 67 yr old Female here for an EGD with dilation due to dysphagia, GERD, iron deficiency anemia, and weight loss PROCEDURE PERFORMED: EGD with biopsy and EGD with dilatation over guidewire MEDICATIONS: Per Anesthesia. TOPICAL ANESTHETIC: none CONSENT: The patient understands the risks and benefits of the procedure and understands that these risks include, but are not limited to: sedation, allergic reaction, infection, perforation and/or bleeding. Alternative means of evaluation and treatment include, among others: physical exam, x-rays, and/or surgical intervention. The patient elects to proceed with this endoscopic procedure. DESCRIPTION OF PROCEDURE: During intra-op preparation period all mechanical medical equipment was checked for proper function. Hand hygiene and appropriate measures for infection prevention was taken. After the risks, benefits and alternatives of the procedure were thoroughly explained, Informed consent was verified, confirmed and timeout was successfully executed by the treatment team. The patient was anesthetized with topical anesthesia and the EG-[id number] ([id number]) endoscope was introduced through the mouth and advanced to the third portion of the duodenum. The instrument was slowly withdrawn as the mucosa was fully examined. Retained food was present in the lower esophagus. soft food and bilious liquid suctioned out. Non-erosive esophagitis was found in the lower esophagus. 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 A small hiatal hernia was found. Retained food was present in the body of the stomach. soft food and bilious liquid suctioned out Moderate gastritis was found in the total stomach. Multiple biopsies were obtained and sent to pathology. A 4mm shallow clean-based ulcer was found in the antrum. Dilation was performed at lower esophagus. DILATOR: SIZE(S): RESISTANCE: HEME: APPEARANCE: Dilator: Savary over guidewire Size(s): 12 mm Resistance: moderate Heme: none Appearance: adequate COMMENT: Retroflexed views revealed a small hiatal hernia. ADVERSE EVENTS: There were no complications. IMPRESSIONS: 1. Small amount of retained food (soft food and bilious liquid suctioned out) in the lower esophagus 2. Non-erosive esophagitis in the lower esophagus 3. 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 small hiatal hernia 5. Small amount of retained food (soft food and bilious liquid suctioned out) in the body of the stomach 6. Moderate to severe gastritis in the total stomach (with edematous folds in the body/fundus), s/p biopsies 7. Shallow 4 mm clean-based ulcer in the proximal antrum RECOMMENDATIONS: 1. await biopsy results 2. acid suppression therapy REPEAT EXAM: Anmol Lugo Dr eSigned: Anmol Lugo Dr 08/25/2018 9:04 AM cc: Lj Smith CPT CODES: ICD9 CODES: PATIENT NAME: Natalie Allison MR#: [id number]
[2018-08-25 13:55] VITALS: O2SAT 100
[2018-08-25 13:56] VITALS: BP 110/52; TEMP 97.7
== END 2018-08-25 09:36 | disposition home or self-care (01) ==
LOC: OR 06:26
PROVIDERS: ATTEND Internal Medicine Gastroenterology
PROC: 0DB68ZX Excision of Stomach, Via Natural or Artificial Opening Endoscopic, Diagnostic (ICD-10-PCS; 2018-08-25)
PROC: 0DB88ZX Excision of Small Intestine, Via Natural or Artificial Opening Endoscopic, Diagnostic (ICD-10-PCS; 2018-08-25)
PROC: 0D758ZZ Dilation of Esophagus, Via Natural or Artificial Opening Endoscopic (ICD-10-PCS; principal; 2018-08-25 08:00)
DX: K29.50 Unspecified chronic gastritis without bleeding (principal); K22.2 Esophageal obstruction; K21.0 Gastro-esophageal reflux disease with esophagitis; K25.9 Gastric ulcer, unspecified as acute or chronic, without hemorrhage or perforation; K44.9 Diaphragmatic hernia without obstruction or gangrene; D50.9 Iron deficiency anemia, unspecified; I10 Essential (primary) hypertension; M19.90 Unspecified osteoarthritis, unspecified site; F17.210 Nicotine dependence, cigarettes, uncomplicated; Z79.899 Other long term (current) drug therapy; Z95.5 Presence of coronary angioplasty implant and graft
CPT/HCPCS: 36415; 43239; 43248; 84132; 88305; 88312; J2704

== ENCOUNTER → 2018-09-04 | Day surgery (SDC) | payer OTHER, BC ==
[~2018-09-04] MED LIST: ALBUMIN HUMAN 25% 300 ML IV ONE
[2018-09-04 10:21] LABS: MPV 9.1 fL (7.6-11.3)
[2018-09-04 10:34] LABS: Protime INR 1.24
[2018-09-04 10:42] VITALS: BMI 16.9
[2018-09-04 10:58] LABS: Platelet Estimate ADEQ
--- NOTE | 2018-09-04 11:48 | RAD REPORT ---
EXAM DESCRIPTION: US - Paracentesis Proc Guidance - 09/04/2018 11:20 am CLINICAL HISTORY: Ascites COMPARISON: Ultrasound paracentesis August 14, 2018 TECHNIQUE: The patient presents for ultrasound-guided paracentesis. The procedure, risks and altern atives were discussed with the patient in detail. Oral and written consent were obtained. Time out p rocedure was performed. The patient had no contraindicated allergy or medication history. PT, INR va lues within acceptable limits. Platelet count normal range. Preliminary sonographic evaluation identified left lower quadrant access site. The skin and deeper t issues were anesthetized with 1 percent lidocaine. Under direct sonographic visualization, a paracen tesis catheter was advanced into the peritoneal cavity. Approximately 20 mL of ascites retained for r equested laboratory studies. Large volume drainage was initiated. Approximately 6 liters of ascites r emoved. At the conclusion of the procedure, catheter was withdrawn and a bandage placed at the puncture site. Postprocedure care and precaution instructions were given to the patient. [facility] was transferred b [facility] to same-day surgery for postprocedure monitoring and albumin infusion per ordering physician prot ocol. IMPRESSION: Ultrasound-guided paracentesis as detailed.
[2018-09-04 13:27] LABS: Appearance CLEAR (CLEAR); Body Fluid Source PERITONEAL; Body Fluid WBC 66 /mm^3; Color of fluid Yellow (COLORLESS)
[2018-09-04 14:21] VITALS: BP 109/64; TEMP 98; O2SAT 98
== END | disposition home or self-care (01) ==
LOC: DS 09:46
PROVIDERS: ATTEND Internal Medicine Gastroenterology
DX: R18.8 Other ascites (principal)
CPT/HCPCS: 87070; 36415; 88108; 89050; 85049; 85610; 88305; 85730; 96365; 49083; P9047

== ENCOUNTER → 2018-10-01 | Day surgery (SDC) | payer OTHER, BC ==
[~2018-10-01] MED LIST changes: +ALBUMIN HUMAN 25% 200 ML IV ONE; -ALBUMIN HUMAN 25% 300 ML IV ONE
[2018-10-01 08:28] VITALS: BP 130/63; TEMP 98.3; O2SAT 100
[2018-10-01 08:30] VITALS: BMI 17.1
--- NOTE | 2018-10-01 09:53 | RAD REPORT ---
EXAM DESCRIPTION: US - Paracentesis Proc Guidance - 10/01/2018 9:48 am CLINICAL HISTORY: ASCITES Ascites COMPARISON: Paracentesis Proc Guidance dated 09/04/2018 FINDINGS: Informed consent was obtained and time-out was performed. Patient's abdomen was prepped and draped in the usual sterile fashion. 1% lidocaine was used for loca l anesthetic purposes. A small skin incision was made in the LLQ region. A paracentesis catheter was guided into the peronea l cavity under sonographic guidance. A small amount of fluid was sent for requested lab studies. A large volume paracentesis was performed . The patient tolerated the procedure well. Patient was administered IV albumin per protocol following the procedure. IMPRESSION: Successful ultrasound-guided paracentesis.
[2018-10-01 11:58] LABS: Body Fluid Source PERITONEAL
[2018-10-01 11:59] LABS: Appearance CLEAR (CLEAR); Body Fluid WBC 83 /mm^3; Color of fluid Colorless (COLORLESS)
== END ==
LOC: DS 07:50
PROVIDERS: ATTEND Internal Medicine Gastroenterology
DX: R18.8 Other ascites (principal); R94.5 Abnormal results of liver function studies
CPT/HCPCS: 87070; 36415; 89050; 96365; 49083; P9047

== ENCOUNTER 2018-10-19 09:00 | Day surgery (SDC) | payer OTHER, BC ==
--- OUTSIDE RECORDS SUMMARY | 2018-10-19 09:05 | XMS REPORT | Clinical Summary ---
:1950 Author Organization [facility] Address [address] [place] [id number] Care Team Providers Name Role Phone Unavailable Primary Care Provider Unavailable Allergies Not on File Medications Not on file Active Problems Not on file Encounters Date Type Specialty Care Team Description 10/01/2018 Telephone Hepatology Rosa Maria Blunt Appointment after 10/18/2017 Social History Tobacco Use Types Packs/Day Years Used Date Never Assessed Sex Assigned at Date Recorded Not on file Job Start Date Occupation Industry Not on file Not on file Not on file Travel History Travel Start Travel End No recent travel history available. Last Filed Vital Signs Not on file Plan of Treatment Not on file Results Not on fileafter 10/18/2017 Insurance Payer Benefit Plan / Subscriber ID Type Phone Address Group MEDICARE MEDICARE A B xxxxxxxxxxx Medicare BLUE CROSS/BLUE BCBS INDEMNITY [place] xxxxxxxxxxxx [facility] [phone] [address] [place] [address]
[2018-10-19 10:44] LABS: MPV 8.7 fL (7.6-11.3)
[2018-10-19 10:56] LABS: Protime INR 1.17
[2018-10-19 11:14] VITALS: O2SAT 100; BMI 16.9
[2018-10-19 11:58] LABS: Platelet Estimate ADEQ; Platelets, Giant FEW
[2018-10-19] MEDS ORDERED: ALBUMIN HUMAN 25% 200 ML IV ONE (12:56)
--- NOTE | 2018-10-19 12:57 | RAD REPORT ---
EXAM DESCRIPTION: US - Paracentesis Proc Guidance - 10/19/2018 11:56 am CLINICAL HISTORY: Ascites COMPARISON: None. TECHNIQUE: The patient presents for ultrasound-guided paracentesis. The procedure, risks and altern atives were discussed with the patient in detail. Oral and written consent were obtained. Time out p rocedure was performed. The patient had no contraindicated allergy or medication history. PT, INR va lues within acceptable limits. Preliminary sonographic evaluation identified right lower quadrant access site. The skin and deeper tissues were anesthetized with 1 percent lidocaine. Under direct sonographic visualization, a parace ntesis catheter was advanced into the peritoneal cavity. Large volume drainage was initiated. Approx imately 5.5 liters of ascites removed. A small 5 mm sample of fluid was retained for requested labora tory studies. At the conclusion of the procedure, catheter was withdrawn and a bandage placed at the puncture site. Postprocedure care and precaution instructions were given to the patient. Patient was transferred [facility] to same-day surgery for pending albumin therapy. IMPRESSION: Ultrasound-guided paracentesis as detailed.
[2018-10-19] MEDS ORDERED: ALBUMIN HUMAN 25% 100 ML IV ONE (13:00)
[2018-10-19 13:31] LABS: Body Fluid WBC 56 /mm^3
[2018-10-19 14:30] VITALS: BP 96/39; TEMP 98.1
[2018-10-19 16:31] LABS: Appearance CLEAR (CLEAR); Body Fluid Source PERITONEAL; Color of fluid Colorless (COLORLESS)
== END 2018-10-19 14:00 | disposition home or self-care (01) ==
LOC: DS 09:00
PROVIDERS: ATTEND Internal Medicine Gastroenterology
DX: R18.8 Other ascites (principal); R94.5 Abnormal results of liver function studies
CPT/HCPCS: 87070; 36415; 89050; 85049; 85610; 85730; 96365; 49083; P9047 ×2